=== PATIENT | male | born 2000 | race Caucasian/White ===

== ENCOUNTER 2025-02-11 11:06 | Outpatient (CLI) | payer OTHER, SELFPAY ==
--- NOTE | ~2025-02-11 | XR_ITS ---
Left Hand Technique: PA, oblique, and lateral views were obtained. Clinical History: Pain Findings: No acute fracture or dislocation is seen. Osseous alignment is anatomic. Joint spaces are p reserved. Soft tissues are unremarkable. Impression: Unremarkable left hand. Reviewed, dictated and finalized at location M. Impression: Unremarkable left hand.
== END 2025-02-11 11:07 | disposition home or self-care (01) ==
PROVIDERS: PCP Nurse Practitioner Family; Visit Provider Nurse Practitioner Family
DX: M25.532 Pain in left wrist (principal)
CPT/HCPCS: 73130

== ENCOUNTER 2025-03-29 15:54 | Outpatient (CLI) | payer OTHER, SELFPAY ==
--- NOTE | ~2025-03-29 | MR_ITS ---
EXAMINATION: MR wrist LT wo/w con DATE: 03/29/2025 16:52 INDICATION: Left wrist pain. Assess for angle fibrocartilage complex tear versus extensor carpi ulnar is tenosynovitis. TECHNIQUE: Magnetic resonance imaging (MRI) of the left wrist was performed without intravenous contr ast. Sequences performed include axial PD-weighted FSE, PD-weighted FS FSE and T1-weighted FS FSE , c oronal PD-weighted FS FSE and T1-weighted SE, sagittal PD-weighted FS FSE and PD-weighted FSE and pos t contrast axial, sagittal and coronal T1-weighted FS FSE. COMPARISON: Left hand radiographs dated FINDINGS: Intrinsic ligaments: The scapholunate and lunotriquetral ligaments are normal. Triangular fibrocartilage complex (TFCC): The triangular fibrocartilage including its foveal and styloid attachments as well as the dorsal and volar radioulnar ligaments are normal. The ulnar collateral ligament, ulnotriquetral ligament and men iscal homologue are normal. There is a tear of the ulnar side of the extensor carpi ulnaris (ECU) sub -sheath allowing partial ulnar subluxation of the extensor carpi ulnaris tendon across the ulnar rim of the ECU groove. Extensor wrist: There is mild tendinopathy of the extensor carpi ulnaris tendon with subtle short and shallow longitu dinal split tear along the superficial margin of the extensor carpi ulnaris tendon at the level of th e ulnar styloid process. No associated tenosynovitis. Remaining extensor tendons of the wrist are nor mal, also without tenosynovitis. Flexor wrist: The flexor tendons of the wrist are normal. No abnormality in the carpal tunnel with normal median n erve. Guyon's canal: Guyon's canal including the ulnar nerve and artery are normal. Bones/other: Normal marrow signal. No fracture, erosions, avascular necrosis or abnormal marrow replacing process. Joint spaces are normal with no focal cartilage defects appreciated. No abnormally enhancing lesion s identified. IMPRESSION: 1. Tear of the ulnar side of the ECU sub-sheath and mild tendinopathy with small shallow longitudinal split tear along the superficial margin of the extensor carpi ulnaris tendon. Reviewed, dictated and finalized at location A. IMPRESSION: 1. Tear of the ulnar side of the ECU sub-sheath and mild tendinopathy with smal l shallow longitudinal split tear along the superficial margin of the extensor carpi ulnaris tendon.
--- OUTSIDE RECORDS SUMMARY | 2025-03-29 15:58 | XMS_ITS | Clinical Summary ---
Author Organization [facility] [place] Address [address] [place] [address] Care Team Providers Care Liner Roll Changer Name Role Phone Kristel Deutsch MD Primary Care Provider [phone] Source Comments [facility],non-owned Affiliates and Associated Physician Practices is amultiple site organization consisting of ambulatory clinics and hospital sitesin [place], [place], [place] and [place]. This disclosure is being madepursuant to the Care Everywhere program and may not contain all information available regarding this patient. Last updated 18.[facility] [place] Allergies Active Allergy Reactions Criticality Noted Date Comments Amoxicillin Urticaria Medium 05/14/2019 Medications * Be aware that medications may not be up to date on this document. Alwaysverify current medications with the patient. FLUoxetine HCl (PROZAC PO) Active methylphenidate CR (CONCERTA) 36 MG tablet Take 36 mg by mouth every morning Active Social History Tobacco Use Types Packs/Day Years Used Date Smoking Tobacco: Never Smokeless Tobacco: Never Comments:No passive smoke ex posure Alcohol Use Standard Drinks/Week Comments No 0 (1 standard drink = 0.6 oz pur e alcohol) Sex and Gender Information Value Date Recorded Sex Assigned at Not on file Legal Sex Male 6:02 PM CDT Gender Identity Not on file Sexual Orientation Not on file Last Filed Vital Signs Vital Sign Reading Time Taken Comments Blood Pressure 114/80 05/06/2019 10:22 AM CDT Pulse 86 05/06/2019 10:22 AM CDT Temperature 37.1 C (98.8 F) 05/06/2019 10:22 AM CDT Respiratory Rate 16 05/06/2019 10:22 AM CDT Oxygen Saturation 98% 05/06/2019 10:22 AM CDT Inhaled Oxygen Concentration - - Weight 57.2 kg (126 lb 3.2 oz) 05/06/2019 10:22 AM CDT Height 175.3 cm (5' 9) 05/06/2019 10:22 AM CDT Body Mass Index 18.64 05/06/2019 10:22 AM CDT Plan of Treatment Health Maintenance Due Date Last Done Comments HIV SCREENING 2016 HPV VACCINE (1 - Male 3-dose series) 2016 MENINGOCOCCAL (Group B) VACC INE SHARED DECISION-MAKING (1 of 2 - Standard) 2017 HEPATITIS C SCREENING 06/13/2019 DTAP/TDAP/TD VACCINES (1 - Tdap) 2020 HEPATITIS B VACCINE (1 of 3 - 19+ 3-dose series) 2020 COVID-19 VACCINE (1 - 2023-2 5 season) 2024 DEPRESSION SCREENING 09/08/2024 INFLUENZA VACCINE (#1) 2025 ZOSTER VACCINE (1 of 2) 2051 HIB VACCINE Aged Out No longer eligi ble based on patient's age to complete this topic MENINGOCOCCAL GROUPS A/C/Y/W VACCINE Aged Out No longer eligible b ased on patient's age to complete this topic PNEUMOCOCCAL VACCINE Aged Out No long er eligible based on patient's age to complete this topic Insurance [facility] Care Teams Liner Roll Changer Relationship Specialty Start Date End Date Kristel Deutsch MD [address] [place] [address] PCP - General Pediatrics 05/06/19
== END 2025-03-29 15:55 | disposition home or self-care (01) ==
PROVIDERS: PCP Nurse Practitioner Family; Visit Provider Plastic Surgery
DX: S56.512A Strain of other extensor muscle, fascia and tendon at forearm level, left arm, initial encounter (principal); S56.522A Laceration of other extensor muscle, fascia and tendon at forearm level, left arm, initial encounter; X58.XXXA Exposure to other specified factors, initial encounter; R20.2 Paresthesia of skin
CPT/HCPCS: 73223; A9577

== ENCOUNTER 2025-08-21 19:29 | Emergency (ER) | payer OTHER, SELFPAY ==
--- NOTE | 2025-08-21 19:38 | ED.GENADULT ---
HPI - General Adult General Chief complaint: Upper Respiratory Infection Stated complaint: HEADACHE/FEVER Time Seen by Provider: 08/21/25 19:39 Source: patient Mode of arrival: ambulatory Limitations: no limitations History of Present Illness HPI narrative: 25-year-old male patient presents to [facility] with complaints of fatigue, body aches, chills, fevers as high as 101, congestion and just overall not feeling well. Patient states started when he woke up this morning. Patient states he did not get a flu shot this year. Denies taking any medications besides some ibuprofen 600 mg for the fever. Related Data Home Medications ?Medication ?Instructions ?Recorded ?Confirmed ?Last Taken ?Type isotretinoin 20 mg capsule PO 02/11/25 02/11/25 Unknown History (Accutane) Allergies Allergy/AdvReac Type Severity Reaction Status Date / Time amoxicillin AdvReac Mild Hives Verified 08/21/25 19:48 Review of Systems Review of Systems: CONSTITUTIONAL: Positive fever, body aches and chills, or sweats. EYES: Denies visual changes, redness, or discharge. ENT: positive rhinorrhea, congestion, sore throat, denies otalgia. CARDIOVASCULAR: Denies chest pain, palpitations, or edema. RESPIRATORY: positive cough , denies dyspnea. GASTROINTESTINAL: Denies abdominal pain, nausea, vomiting, or diarrhea. GENITOURINARY: Denies dysuria or hematuria. SKIN: Denies rash or itching. MUSCULOSKELETAL: Denies back pain, joint pain, positive myalgia. NEUROLOGIC: Denies headache, numbness, or weakness. PSYCHIATRIC: Denies anxiety or depression. [facility] Past Medical History Medical History Bipolar disorder LINDSAY (generalized anxiety disorder) Extensor tenosynovitis of left wrist Sprain of wrist, left Atopic dermatitis Anxiety disorder ADHD Family History Family History Mother Family history of bipolar disorder Social History Social History Social History: Caffeine-coffee, pre-workout Smoking status: Never smoker Alcohol intake: current Drinks per week: 5 Substance use: former Substance use type: marijuana Last use: rarely Lack of Transportation: No Lack of Food: Never True Current Housing: I Have Housing Concerned About Future Housing: No Difficulty Paying Gas/Electric Bills: No Difficulty Paying for Meds: No Currently Unemployed: No Education: High School Diploma/GED Difficulty w/ Childcare or Family Care: No Comments At the time of my signature I agree with nursing past medical history, surgical, social, and family history. There is no relevant family history pertinent to the presenting complaint. Exam Narrative: GENERAL: ill-appearing, well-nourished, and in no acute distress. HEAD: Normocephalic, atraumatic. EYES: PERRLA and EOMI. ENT: Nares with erythema edema noted bilaterally, no rhinorrhea or epistaxis. Mucous membranes moist. posterior pharynx with no erythema, tonsillar enlargement, exudates or lesions present. NECK: Supple. No lymphadenopathy CHEST: Clear to auscultation. No respiratory distress. HEART: Regular rate and rhythm. No murmur heard. Normal peripheral pulses. ABDOMEN: Soft, nontender, nondistended, normal active bowel sounds. EXTREMITIES: Normal range of motion. No edema. SKIN: Warm, dry, no rash. NEURO: No focal deficits. Alert and oriented x3. Course Course Level of Care: Express Care Visit Vital Signs Vital signs: Vital Signs Temperature 36.6 C 08/21/25 19:43 Pulse Rate 107 H 08/21/25 19:43 Respiratory Rate 16 08/21/25 19:43 Blood Pressure 131/55 L 08/21/25 19:43 Pulse Oximetry 97 08/21/25 19:43 Temperature 36.6 C 08/21/25 19:43 Pulse Rate 107 H 08/21/25 19:43 Respiratory Rate 16 08/21/25 19:43 Blood Pressure 131/55 L 08/21/25 19:43 Pulse Oximetry 97 08/21/25 19:43 vital signs reviewed The patient has been informed that they may have pre-hypertension or Hypertension based on a BP reading in the department. I recommend that the patient call the primary care provider listed on their discharge instructions or a physician of their choice this week to arrange follow up for further evaluation of possible pre-hypertension or Hypertension MDM MDM Narrative Medical decision making narrative: discussed with patient that he is positive today for flu A. Notified him that we will discharge him home with Tamiflu to help decrease his viral symptoms also recommended [id number] medication including Tylenol, ibuprofen for the fevers, increase his fluid intake and may want some electrolyte replacement. Lots of rest. Discussed with patient he can also use some mvej-tjj-rytoban vitamin-C, vitamin-D and zinc to help with the virus. Patient verbalized understanding denies any other questions or concerns at this time. Differential Diagnosis Differential Diagnosis: Differential diagnosis: Allergic rhinitis, chronic sinusitis, tonsillitis, acute sinusitis, infectious mononucleosis, seasonal influenza, pertussis, diphtheria, meningococcal disease, viral syndrome, viral bronchitis, RSV, COVID-19 Critical Care Time Critical Care Time Critical Care Time: No Discharge Plan Discharge Clinical Impression: Influenza A Patient Disposition: Home Condition: Stable Instructions: Antibiotic Form, Influenza (ED) Additional Instructions: Influenza (the flu) is an infection caused by the influenza virus. The flu is easily spread when an infected person coughs, sneezes, or has close contact with others. You may be able to spread the flu to others for 1 week or longer after signs or symptoms appear. DISCHARGE INSTRUCTIONS: Call your local emergency number (911 in the ) if: You have trouble breathing, and your lips look purple or blue. You have a seizure. Call your doctor if: You are dizzy, or you are urinating less or not at all. You have a headache with a stiff neck, and you feel tired or confused. You have new pain or pressure in your chest. Your symptoms, such as shortness of breath, vomiting, or diarrhea, get worse. Your symptoms, such as fever and coughing, seem to get better, but then get worse. You have new muscle pain or weakness. You have questions or concerns about your condition or care. Medicines: You may need any of the following: Acetaminophen decreases pain and fever. It is available without a doctor's order. Ask how much to take and how often to take it. Follow directions. Read the labels of all other medicines you are using to see if they also contain acetaminophen, or ask your doctor or pharmacist. Acetaminophen can cause liver damage if not taken correctly. Do not use more than 4 grams (4,000 milligrams) total of acetaminophen in one day. NSAIDs , such as ibuprofen, help decrease swelling, pain, and fever. This medicine is available with or without a doctor's order. NSAIDs can cause stomach bleeding or kidney problems in certain people. If you take blood thinner medicine, always ask your healthcare provider if NSAIDs are safe for you. Always read the medicine label and follow directions. Rest as much as you can to help you recover. Vitamin C: 2000 mg in the morning and 2000 mg in the evening. Zinc 50 mg daily for 5 days. Vitamin D3 2000 IU daily with food Patient Language: Croatian Prescriptions: New oseltamivir 75 mg capsule 75 mg PO Q12H 5 Days Qty: 10 0RF No Action isotretinoin [Accutane] 20 mg capsule PO meloxicam 7.5 mg tablet 7.5 mg PO DAILY Qty: 30 0RF methylphenidate HCl [Concerta] 36 mg tablet extended release 24hr 36 mg PO QAM Qty: 30 0RF Rx Instructions: July methylphenidate HCl [Concerta] 36 mg tablet extended release 24hr 36 mg PO QAM Qty: 30 0RF Rx Instructions: August Follow-up/Referrals: Sally Fontanez, [employer], [employer] [Primary Care Provider, Family Practice] Stand Alone Forms: Work/School Release IP Time of Disposition: 19:55
[2025-08-21 19:43] VITALS: BP 131/55; PULSE 107; RESP 16; TEMP 36.6; O2SAT 97
[2025-08-21 19:57] LABS: EDCOVIDSCREEN Negative (Negative); EDINFLUASCREEN Positive (Negative); EDINFLUBSCREEN Negative (Negative); EDSTREPNEGPOS1 Negative (Negative)
== END 2025-08-21 20:02 | disposition home or self-care (01) ==
PROVIDERS: Emergency Provider Nurse Practitioner Family; PCP Nurse Practitioner Family
DX: J10.1 Influenza due to other identified influenza virus with other respiratory manifestations (principal); Z20.822 Contact with and (suspected) exposure to COVID-19; F90.9 Attention-deficit hyperactivity disorder, unspecified type
CPT/HCPCS: 87081; 87426; 87804; 87880; 99213; G0463